=== PATIENT | male | born 1960 | race Caucasian/White ===

== ENCOUNTER → 2021-09-14 | Outpatient (REF) | payer BC ==
[2021-09-14 14:21] LABS: HEMATOCRIT 48.6 % (42.0-52.0); HEMOGLOBIN 15.8 g/dl (13.5-17.5); MEAN CORPUSCULAR HEMOGLOBIN 29.1 pg (27.0-33.0); MEAN CORPUSCULAR HGB CONC 32.5 g/dl (32.0-36.5); MEAN CORPUSCULAR VOLUME 89.5 fl (80.0-96.0); PLATELET COUNT, AUTOMATED 258 10^3/uL (150-450); RED BLOOD COUNT 5.43 10^6/uL (4.30-6.10); WHITE BLOOD COUNT 9.3 10^3/uL (4.0-10.0)
[2021-09-14 15:41] LABS: HEMOGLOBIN A1c 7.2 %
[2021-09-14 16:19] LABS: ALT/SGPT 40 U/L (12-78); BILIRUBIN,TOTAL 0.5 MG/DL (0.2-1.0); BLOOD UREA NITROGEN 14 MG/DL (7-18); CARBON DIOXIDE LEVEL 28 MEQ/L (21-32); CHLORIDE LEVEL 106 MEQ/L (98-107); CHOLESTEROL LEVEL 257 MG/DL (<200); CREATININE FOR GFR 1.14 MG/DL (0.70-1.30); GLOMERULAR FILTRATION RATE > 60.0 (>49); GLUCOSE, FASTING 146 MG/DL (70-100); HDL CHOLESTEROL 55 MG/DL (>40); POTASSIUM SERUM 4.7 MEQ/L (3.5-5.1); SODIUM LEVEL 140 MEQ/L (136-145); TRIGLYCERIDES LEVEL 281 MG/DL (<150)
[2021-09-14 16:20] LABS: ALBUMIN 3.3 GM/DL (3.2-5.2); CHOLESTEROL RISK RATIO 4.672 (<5); FREE T4 1.29 NG/DL (0.76-1.46); LDL CHOLESTEROL 146 MG/DL (<100); NON-HDL-C 202 MG/DL; TOTAL PROTEIN 6.9 GM/DL (6.4-8.2)
== END ==
LOC: M SFHCADAM 11:08
PROVIDERS: ATTEND Family Medicine
DX: I25.10 Atherosclerotic heart disease of native coronary artery without angina pectoris (principal); G47.33 Obstructive sleep apnea (adult) (pediatric); Z12.5 Encounter for screening for malignant neoplasm of prostate; E78.5 Hyperlipidemia, unspecified; E11.9 Type 2 diabetes mellitus without complications

== ENCOUNTER → 2021-10-06 | Outpatient (CLI) | payer BC ==
--- NOTE | 2021-10-08 06:03 | REP ---
INDICATION: PERSONAL HISTORY OF NICOTINE DEPENDENCE COMPARISON: None. TECHNIQUE: Axial noncontrast images from the thoracic inlet to the upper abdomen using low-dose lung screening technique (LDCT). FINDINGS: Subtle patchy ground-glass opacities noted bilaterally which may reflect chronic change versus a new/resolving process. Small subpleural nodules may be obscured due to these areas of opacity. There is no obvious nodule or mass lesion identified. Moderate mediastinal adenopathy is suspected. Atherosclerotic changes to the thoracic aorta and coronary arteries noted along with cardiomegaly. IMPRESSION: Lung-RADS category 0. No prior examinations are available for comparison and patchy bilateral ground-glass opacities along with mediastinal adenopathy may represent chronic change versus acute process. Consider short-term 3 month re-evaluation. <Electronically signed by Dayton Pizarro > 10/08/21 [id number]
== END ==
LOC: M RAD 10:05
PROVIDERS: ATTEND Physician Assistant
DX: Z12.2 Encounter for screening for malignant neoplasm of respiratory organs (principal); Z87.891 Personal history of nicotine dependence

== ENCOUNTER → 2021-10-12 | Outpatient (CLI) | payer BC ==
--- NOTE | 2021-10-16 15:25 | SLEEPCENT ---
DATE: 10/12/2021 ORDERED BY: STARR Lopez Nocturnal polysomnography was performed for the titration of pressure therapy in this patient with a clinical history consistent with the obstructive sleep apnea syndrome supported by home testing revealing a respiratory event index of 31.9. For testing the patient was fit with a ResMed F20 full face mask of medium size, 4 cm of water pressure were applied to the circuit, and the lights were extinguished. Seven hours and 21 minutes of data were reviewed. There were 223.0 minutes of sleep identified. Sleep latency was prolonged at 30 minutes. REM latency was prolonged at 241 minutes. Sleep architecture improved late in the study on optimal pressure therapy, and there were two REM cycles noted. Overall sleep efficiency was 51.6%. The electrocardiogram showed an underlying sinus rhythm with frequent PVCs. Episodes of bigeminy were noted. Average heart rate was 70 beats per minute. Rate ranged 50-90. EEG showed normal waveforms for wake and sleep. Persistent respiratory events prompted an increase in CPAP pressure and despite optimal mask fit and minimal air leak, the patient required a change to a bilevel therapy. Best sleep was seen on a bilevel pressure therapy of 15/8 with which the patient slept through REM without respiratory event or oxygen desaturation. There was some activity noted in the limb EMG leads. Limb movement arousal index on this occasion was 4.8. IMPRESSION: Obstructive sleep apnea syndrome (G47.33). RECOMMENDATION: Nightly use of bilevel pressure therapy inspiratory 15 over expiratory 8. cc: THOMAS HORTON MD
== END ==
LOC: M SLEEP 20:00
PROVIDERS: ATTEND Physician Assistant
DX: G47.33 Obstructive sleep apnea (adult) (pediatric) (principal)

== ENCOUNTER → 2022-01-02 | Outpatient (CLI) | payer BC | LOC: M RAD 12:39 | PROVIDERS: ATTEND Physician Assistant | DX: I70.0 Atherosclerosis of aorta (principal); I25.10 Atherosclerotic heart disease of native coronary artery without angina pectoris ==

== ENCOUNTER → 2022-02-02 | Outpatient (REF) | payer BC ==
[2022-02-02 14:13] LABS: HEMOGLOBIN A1c 7.3 %
[2022-02-02 14:33] LABS: ALBUMIN 3.6 GM/DL (3.2-5.2); BILIRUBIN,TOTAL 0.7 MG/DL (0.2-1.0); CALCIUM LEVEL 8.8 MG/DL (8.8-10.2); CHOLESTEROL RISK RATIO 3.775 (<5); CREATININE FOR GFR 1.35 MG/DL (0.70-1.30); GLOMERULAR FILTRATION RATE 56.8 (>49); POTASSIUM SERUM 4.5 MEQ/L (3.5-5.1)
== END ==
LOC: M SFHCADAM 08:34
PROVIDERS: ATTEND Family Medicine
DX: E78.5 Hyperlipidemia, unspecified (principal); E11.9 Type 2 diabetes mellitus without complications

== ENCOUNTER 2022-04-09 11:26 | Inpatient (IN) | payer BC ==
[~2022-04-09] VITALS: Ht 165.1 cm; Wt 118.8 kg
[2022-04-09] MEDS ORDERED: METO1TAB87 PO (11:55)
[2022-04-09] MEDS ORDERED: BREO1INH3 INH (11:55)
[2022-04-09] MEDS ORDERED: VALS40TA9 PO (11:55)
[2022-04-09] MEDS ORDERED: PRAV20TA2 PO (11:55)
[2022-04-09] MEDS ORDERED: JARD1TAB PO (11:55)
[2022-04-09 13:13] LABS: BASO # 0.1 10^3/uL (0.0-0.2); EOS # 0.2 10^3/uL (0.0-0.5); EOS % 2.5 % (0.0-3.0); HEMATOCRIT 47.2 % (42.0-52.0); LYMPH # 1.6 10^3/uL (1.5-5.0); LYMPH % 18.1 % (24.0-44.0); MEAN CORPUSCULAR HGB CONC 33.9 g/dl (32.0-36.5); MEAN CORPUSCULAR VOLUME 88.6 fl (80.0-96.0); MONO # 0.7 10^3/uL (0.0-0.8); MONO % 8.1 % (2.0-8.0); NEUTROPHILS # 6.3 10^3/uL (1.5-8.5); NEUTROPHILS % 69.6 % (36.0-66.0); PLATELET COUNT, AUTOMATED 225 10^3/uL (150-450); RED BLOOD COUNT 5.33 10^6/uL (4.30-6.10)
[2022-04-09] MEDS ORDERED: ISOVUE-370 76% 100ML VIAL As Ordered ONE (13:19)
[2022-04-09] MEDS ORDERED: ASPIRIN 325 MG TAB PO ONE (13:20)
[2022-04-09 13:39] LABS: AMPHETAMINES LEVEL URINE NEGATIVE (NEGATIVE); BARBITURATES URINE NEGATIVE (NEGATIVE); BENZODIAZEPINES URINE NEGATIVE (NEGATIVE); CANNABINOIDS URINE NEGATIVE (NEGATIVE); COCAINE METABOLITE URINE NEGATIVE (NEGATIVE); METHADONE URINE NEGATIVE (NEGATIVE); OPIATES URINE NEGATIVE (NEGATIVE); PHENCYCLIDINE URINE NEGATIVE (NEGATIVE)
[2022-04-09 13:51] LABS: ACETAMINOPHEN LEVEL < 2.0 UG/ML (10.0-30.0); ALBUMIN 3.1 GM/DL (3.2-5.2); ALT/SGPT 28 U/L (12-78); BILIRUBIN,DIRECT < 0.1 MG/DL (0.0-0.2); BILIRUBIN,TOTAL 0.8 MG/DL (0.2-1.0); CK-MB VALUE MASS < 1.0 NG/ML (<3.6); CPK CREATINE PHOSPHOKINASE 228 U/L (39-308); ETHYL ALCOHOL (ETHANOL) < 0.003 % (0.000-0.010); MB/CK RELATIVE INDEX 0.44 (< OR =4); SALICYLATE LEVEL < 1.7 MG/DL (5.0-30.0); THYROID STIMULATING HORMONE 0.819 uIU/ML (0.358-3.740); TOTAL PROTEIN 7.3 GM/DL (6.4-8.2)
[2022-04-09 14:24] LABS: RSV AMPLIFICATION NEGATIVE (NEGATIVE)
[2022-04-09] MEDS ORDERED: ALBU8.5H INH (14:47)
[2022-04-09] MEDS ORDERED: ASPI81TA26 PO (14:47)
[2022-04-09] MEDS ORDERED: HOME MED LIST COMPLETE! XX SCH (14:50)
[2022-04-09] MEDS ORDERED: hydrALAZINE 20MG/ML 1ML VIAL (J0360 PER 20MG) IV STA (15:17)
[2022-04-09] MEDS ORDERED: hydrALAZINE 20MG/ML 1ML VIAL (J0360 PER 20MG) IV PRN (16:15)
[2022-04-09] MEDS ORDERED: ALBUTEROL 90 MCG/ACT 8GM HFA INHALER INH PRN (16:15)
[2022-04-09] MEDS ORDERED: GLUCAGON INJ 1MG VIAL SC PRN (16:20)
[2022-04-09] MEDS ORDERED: GLUCOSE 4GM CHEW TABLET PO PRN (16:20)
[2022-04-09] MEDS ORDERED: DEXTROSE 50% 50 ML SYRINGE IV PRN (16:20)
[2022-04-09 17:04] LABS: CHOLESTEROL RISK RATIO 4.066 (<5)
[2022-04-09 17:23] LABS: INR 0.88; PROTHROMBIN TIME 12.3 SECONDS (12.7-14.5)
[2022-04-09 17:24] LABS: PARTIAL THROMBOPLASTIN TIME 31.4 SECONDS (25.9-37.0)
[2022-04-09] MEDS: INSULIN LISPRO (NovoLOG) PER UNIT SC SCH ×2 (18:20→21:07)
[2022-04-09 22:15] VITALS: BP 175/88
[2022-04-09] MEDS ORDERED: ACETAMINOPHEN TAB 650MG DOSE (2X325MG) PO ONE (22:35)
[2022-04-09 23:50] VITALS: BP 157/72
[2022-04-10 04:31] VITALS: BP 143/76
[2022-04-10 07:12] LABS: HEMOGLOBIN 15.8 g/dl (13.5-17.5); MEAN CORPUSCULAR HEMOGLOBIN 29.5 pg (27.0-33.0); MEAN CORPUSCULAR HGB CONC 33.6 g/dl (32.0-36.5); MEAN CORPUSCULAR VOLUME 87.7 fl (80.0-96.0); PLATELET COUNT, AUTOMATED 184 10^3/uL (150-450); RED BLOOD COUNT 5.36 10^6/uL (4.30-6.10); WHITE BLOOD COUNT 7.5 10^3/uL (4.0-10.0)
[2022-04-10 07:37] LABS: ALBUMIN 3.1 GM/DL (3.2-5.2); BILIRUBIN,TOTAL 0.6 MG/DL (0.2-1.0); CALCIUM LEVEL 8.9 MG/DL (8.8-10.2); CREATININE FOR GFR 1.3 MG/DL (0.70-1.30); GLOMERULAR FILTRATION RATE 59.4 (>49); POTASSIUM SERUM 4.1 MEQ/L (3.5-5.1)
[2022-04-10] MEDS: ADVAIR HFA 230/21MCG INHALER INH SCH ×2 (08:00→21:47)
[2022-04-10 08:02] VITALS: BP 140/90
[2022-04-10] MEDS: PRAVASTATIN 20 MG TAB PO SCH (08:46)
[2022-04-10] MEDS: ASPIRIN 81MG ENTERIC TABLET PO SCH (08:46)
[2022-04-10] MEDS: INSULIN LISPRO (NovoLOG) PER UNIT SC SCH ×4 (08:46→20:34)
[2022-04-10] MEDS: ENOXAPARIN 40MG/0.4ML SYRINGE (J1650 PER 10MG) SC SCH (08:47)
[2022-04-10] MEDS ORDERED: METOPROLOL TART 25 MG TABLET PO SCH (09:00)
[2022-04-10] MEDS ORDERED: VALSARTAN 80 MG TAB (DIOVAN) PO SCH (09:00)
[2022-04-10] MEDS ORDERED: VALSARTAN 40MG TABLET (DIOVAN) PO SCH (09:00)
[2022-04-10] MEDS ORDERED: CLOPIDOGREL 75 MG TAB PO ONE (10:30)
[2022-04-10 10:41] LABS: MAGNESIUM LEVEL 1.8 MG/DL (1.8-2.4)
[2022-04-10 11:29] LABS: CK-MB VALUE MASS < 1.0 NG/ML (<3.6); CPK CREATINE PHOSPHOKINASE 79 U/L (39-308); MB/CK RELATIVE INDEX 1.27 (< OR =4)
[2022-04-10 12:00] VITALS: BP 160/96
[2022-04-10 13:37] LABS: INR 0.9; PROTHROMBIN TIME 12.5 SECONDS (12.7-14.5)
[2022-04-10 13:38] LABS: PARTIAL THROMBOPLASTIN TIME 32.6 SECONDS (25.9-37.0)
[2022-04-10 15:59] VITALS: BP 159/90
[2022-04-10 20:00] VITALS: BP 156/82
[2022-04-10] MEDS ORDERED: ATORVASTATIN 20 MG TAB PO SCH (21:00)
[2022-04-11 00:05] VITALS: BP 147/70
[2022-04-11 04:00] VITALS: BP 145/85
[2022-04-11] MEDS: ADVAIR HFA 230/21MCG INHALER INH SCH (07:19)
[2022-04-11] MEDS ORDERED: CLOP75TA2 PO (07:36)
[2022-04-11] MEDS ORDERED: ALDA25TA2 PO (07:40)
[2022-04-11] MEDS ORDERED: CARV12.5 PO (07:40)
[2022-04-11] MEDS ORDERED: ENTR1TAB PO (07:40)
[2022-04-11] MEDS ORDERED: PRAV40TA2 PO (07:42)
[2022-04-11 07:56] VITALS: BP 152/82
[2022-04-11] MEDS: INSULIN LISPRO (NovoLOG) PER UNIT SC SCH ×2 (08:04→12:32)
[2022-04-11] MEDS: MAG SULF 1GM/100ML (MAG RUN) 1 GM in IV 1 EA IV ONE ×2 (08:05→08:42)
[2022-04-11] MEDS: ASPIRIN 81MG ENTERIC TABLET PO SCH (08:06)
[2022-04-11] MEDS: PRAVASTATIN 20 MG TAB PO SCH (08:07)
[2022-04-11] MEDS: ENOXAPARIN 40MG/0.4ML SYRINGE (J1650 PER 10MG) SC SCH (08:08)
[2022-04-11 08:30] LABS: BLOOD UREA NITROGEN 18 MG/DL (7-18); CALCIUM LEVEL 9.3 MG/DL (8.8-10.2); CARBON DIOXIDE LEVEL 23 MEQ/L (21-32); CHLORIDE LEVEL 108 MEQ/L (98-107); GLOMERULAR FILTRATION RATE > 60.0 (>49); GLUCOSE, FASTING 153 MG/DL (70-100); MAGNESIUM LEVEL 1.8 MG/DL (1.8-2.4); SODIUM LEVEL 138 MEQ/L (136-145)
[2022-04-11] MEDS ORDERED: ASPI-551 PO (08:39)
[2022-04-11] MEDS ORDERED: ENTRESTO 24-26MG TABLET (SACUBITRIL/VALSARTAN) PO SCH (09:00)
[2022-04-11] MEDS ORDERED: CLOPIDOGREL 75 MG TAB PO SCH (09:00)
[2022-04-11] MEDS ORDERED: MAGNESIUM OXIDE 400MG TAB (MAG-OX) PO ONE (09:00)
[2022-04-11] MEDS ORDERED: SPIRONOLACTONE 25 MG TAB PO SCH (09:00)
[2022-04-11] MEDS ORDERED: CARVedilol 12.5 MG TAB PO SCH (09:00)
[2022-04-11] MEDS ORDERED: VALSARTAN 40MG TABLET (DIOVAN) PO SCH (09:00)
[2022-04-11] MEDS ORDERED: NON-FORMULARY 1 EA EA INH SCH (09:00)
[2022-04-11 09:47] LABS: DRVV SCREEN 42.3 SEC
[2022-04-11 09:49] LABS: PTT LUPUS TYPE ANTICOAG SCREEN 1.1 (0-1.2)
[2022-04-11 11:32] VITALS: BP 150/80
[2022-04-11] MEDS ORDERED: CARVedilol 12.5 MG TAB PO ONE (12:00)
[2022-04-11 12:32] VITALS: BP 150/80
[2022-04-11 14:32] VITALS: BP 138/68
[2022-04-16 14:11] LABS: ANCA-ATYPICAL <1:20 titer (Neg:<1:20); ANTI THROMBIN 3 ANTIGEN IMMUNO 101 % (72-124); ANTI THROMBIN 3 FUNCT ACTIVITY 88 % (75-135); ANTINUCLEAR ANTIBODIES DIRECT Negative (Negative); CARDIOLIPIN IGA ANTIBODY <9 APL U/mL (0-11); CARDIOLIPIN IGG ANTIBODY <9 GPL U/mL (0-14); CARDIOLIPIN IGM ANTIBODY <9 MPL U/mL (0-12); CYTOPLASMIC NEUTROP AB ANCA-C <1:20 titer (Neg:<1:20); PERINUCLEAR AB ANCA-P <1:20 titer (Neg:<1:20); PROTEIN C ANTIGEN 123 % (60-150); PROTEIN S ANTIGEN FREE 137 % (61-136); PROTEIN S ANTIGEN TOTAL 135 % (60-150); SJOGREN'S ANTI SS-A <0.2 AI (0.0-0.9); SJOGREN'S ANTI SS-B <0.2 AI (0.0-0.9)
== END 2022-04-11 15:19 | disposition home or self-care (01) | DRG 45 ==
LOC: M ED 11:26 → M ED INP 14:49 → M PCU 22:18
PROVIDERS: ADMIT Internal Medicine; ATTEND General Practice
DX: I63.9 Cerebral infarction, unspecified (principal); I11.0 Hypertensive heart disease with heart failure; I50.22 Chronic systolic (congestive) heart failure; Z68.41 Body mass index [BMI] 40.0-44.9, adult; I69.320 Aphasia following cerebral infarction; E11.9 Type 2 diabetes mellitus without complications; E78.5 Hyperlipidemia, unspecified; I16.1 Hypertensive emergency; I25.10 Atherosclerotic heart disease of native coronary artery without angina pectoris; J44.9 Chronic obstructive pulmonary disease, unspecified; E66.9 Obesity, unspecified; Z79.82 Long term (current) use of aspirin; Z79.899 Other long term (current) drug therapy; Z95.2 Presence of prosthetic heart valve; Z95.1 Presence of aortocoronary bypass graft; Z96.642 Presence of left artificial hip joint; Z87.891 Personal history of nicotine dependence

== ENCOUNTER → 2022-05-06 | Outpatient (CLI) | payer BC ==
[~2022-05-06] MED LIST: ALBU8.5H INH; ALDA25TA2 PO; ASPI-551 PO; ASPI81TA26 PO; BREO1INH3 INH; CARV12.5 PO; CLOP75TA2 PO; ENTR1TAB PO; JARD1TAB PO; METO1TAB87 PO; PRAV20TA2 PO; PRAV40TA2 PO; VALS40TA9 PO
== END ==
LOC: M LABSMTC 11:55
PROVIDERS: ATTEND Anesthesiology
DX: Z01.812 Encounter for preprocedural laboratory examination (principal); Z20.822 Contact with and (suspected) exposure to COVID-19

== ENCOUNTER 2022-05-09 11:34 | Day surgery (SDC) | payer BC ==
[~2022-05-09] VITALS: Ht 165.1 cm; Wt 115.7 kg
[~2022-05-09 11:34] MED LIST changes: +ceFAZolin SOD 2 GM in IV 1 EA IV ONE
[2022-05-09] MEDS ORDERED: LR 1,000 ML IV SCH (12:10)
[2022-05-09] MEDS ORDERED: MUPIROCIN 2% OINT 22 GM TUBE As Ordered ONE (13:24)
[2022-05-09] MEDS ORDERED: LIDOCAINE 1% MDV 20ML VIAL As Ordered ONE (13:24)
[2022-05-09] MEDS ORDERED: fentaNYL 100 MCG/2 ML INJECTION As Ordered ONE (14:14)
[2022-05-09] MEDS ORDERED: MIDAZOLAM INJ 2MG/2ML VIAL (J2250 PER 1MG) As Ordered ONE (14:14)
[2022-05-09] MEDS ORDERED: propofoL 200 MG/20 ML VIAL As Ordered ONE (14:15)
[2022-05-09 14:25] VITALS: BP 166/93
== END 2022-05-09 15:05 | disposition home or self-care (01) ==
LOC: M SDC 11:34
PROVIDERS: ATTEND Internal Medicine Cardiovascular Disease
DX: I63.9 Cerebral infarction, unspecified (principal); I10 Essential (primary) hypertension; I25.10 Atherosclerotic heart disease of native coronary artery without angina pectoris; Z98.61 Coronary angioplasty status; Z87.891 Personal history of nicotine dependence; G47.33 Obstructive sleep apnea (adult) (pediatric); J44.9 Chronic obstructive pulmonary disease, unspecified; Z86.73 Personal history of transient ischemic attack (TIA), and cerebral infarction without residual deficits; E11.9 Type 2 diabetes mellitus without complications; F32.A Depression, unspecified; Z79.02 Long term (current) use of antithrombotics/antiplatelets; Z79.51 Long term (current) use of inhaled steroids; R60.0 Localized edema
CPT/HCPCS: 33285; C1764; J0690; J2250; J3010

== ENCOUNTER → 2022-05-31 | Outpatient (CLI) | payer BC ==
[~2022-05-31] MED LIST changes: -ceFAZolin SOD 2 GM in IV 1 EA IV ONE
== END ==
LOC: M SOG 08:26
PROVIDERS: ATTEND Orthopaedic Surgery
DX: M19.012 Primary osteoarthritis, left shoulder (principal); M16.11 Unilateral primary osteoarthritis, right hip; M25.512 Pain in left shoulder; M25.552 Pain in left hip; Z96.642 Presence of left artificial hip joint

== ENCOUNTER → 2022-06-06 | Outpatient (REF) | payer BC ==
[2022-06-06 13:35] LABS: BLOOD UREA NITROGEN 25 MG/DL (7-18); CALCIUM LEVEL 9.2 MG/DL (8.8-10.2); CARBON DIOXIDE LEVEL 24 MEQ/L (21-32); CHLORIDE LEVEL 104 MEQ/L (98-107); CREATININE FOR GFR 1.26 MG/DL (0.70-1.30); GLOMERULAR FILTRATION RATE > 60.0 (>49); GLUCOSE, FASTING 249 MG/DL (70-100); POTASSIUM SERUM 4.4 MEQ/L (3.5-5.1); SODIUM LEVEL 137 MEQ/L (136-145)
[2022-06-06 21:37] LABS: HEMOGLOBIN A1c 8.6 %
== END ==
LOC: M SFHCADAM 10:22
PROVIDERS: ATTEND Family Medicine
DX: E11.9 Type 2 diabetes mellitus without complications (principal)

== ENCOUNTER → 2022-09-25 | Outpatient (REF) | payer BC ==
[2022-09-25 17:00] LABS: HEMATOCRIT 44.9 % (42.0-52.0); HEMOGLOBIN 14.8 g/dl (13.5-17.5); MEAN CORPUSCULAR HEMOGLOBIN 30.5 pg (27.0-33.0); MEAN CORPUSCULAR VOLUME 92.6 fl (80.0-96.0); PLATELET COUNT, AUTOMATED 246 10^3/uL (150-450); RED BLOOD COUNT 4.85 10^6/uL (4.30-6.10); WHITE BLOOD COUNT 8.9 10^3/uL (4.0-10.0)
[2022-09-25 18:53] LABS: HEMOGLOBIN A1c 8.6 % (4.0-6.0)
[2022-09-25 19:02] LABS: ALBUMIN 3.8 G/DL (3.2-5.2); ALT/SGPT 29 U/L (7.0-40); BILIRUBIN,TOTAL 0.4 MG/DL (0.3-1.2); BLOOD UREA NITROGEN 18 MG/DL (9-23); CALCIUM LEVEL 9.2 MG/DL (8.3-10.6); CARBON DIOXIDE LEVEL 24 MMOL/L (20-31); CHLORIDE LEVEL 105 MMOL/L (98-107); CHOLESTEROL LEVEL 175 MG/DL (<200); CHOLESTEROL RISK RATIO 3.07 (<5); CREATININE FOR GFR 1.27 MG/DL (0.70-1.30); GLOMERULAR FILTRATION RATE > 60.0 (>49); GLUCOSE, FASTING 211 MG/DL (74-106); LDL CHOLESTEROL 42.2 MG/DL (<100); NON-HDL-C 118 MG/DL; POTASSIUM SERUM 4.8 MMOL/L (3.5-5.1); SODIUM LEVEL 141 MMOL/L (136-145); TOTAL PROTEIN 6.7 G/DL (5.7-8.2); TRIGLYCERIDES LEVEL 379 MG/DL (<150)
== END ==
LOC: M WUC 13:15
PROVIDERS: ATTEND Family Medicine
DX: Z86.73 Personal history of transient ischemic attack (TIA), and cerebral infarction without residual deficits (principal); E11.9 Type 2 diabetes mellitus without complications; I25.10 Atherosclerotic heart disease of native coronary artery without angina pectoris; I50.22 Chronic systolic (congestive) heart failure

== ENCOUNTER → 2023-01-01 | Outpatient (REF) | payer BC ==
[2023-01-01 13:40] LABS: CALCIUM LEVEL 9.6 MG/DL (8.3-10.6); CREATININE FOR GFR 1.36 MG/DL (0.70-1.30); GLOMERULAR FILTRATION RATE 56.2 (>49)
[2023-01-01 14:09] LABS: HEMOGLOBIN A1c 7.9 % (4.0-6.0)
== END ==
LOC: M SFHCADAM 11:13
PROVIDERS: ATTEND Family Medicine
DX: E11.9 Type 2 diabetes mellitus without complications (principal)

== ENCOUNTER → 2023-01-29 | Outpatient (CLI) | payer BC | LOC: M RAD 06:09 | PROVIDERS: ATTEND Physician Assistant | DX: Z12.2 Encounter for screening for malignant neoplasm of respiratory organs (principal); Z87.891 Personal history of nicotine dependence; I51.7 Cardiomegaly ==

== ENCOUNTER → 2023-03-27 | Outpatient (REF) | payer BC ==
[2023-03-27 18:17] LABS: HEMOGLOBIN A1c 7.2 % (4.0-6.0)
[2023-03-27 18:18] LABS: CALCIUM LEVEL 8.7 MG/DL (8.3-10.6); CREATININE FOR GFR 1.39 MG/DL (0.70-1.30); GLOMERULAR FILTRATION RATE 54.8 (>49); POTASSIUM SERUM 4.7 MMOL/L (3.5-5.1)
== END ==
LOC: M SFHCADAM 16:40
PROVIDERS: ATTEND Family Medicine
DX: E11.9 Type 2 diabetes mellitus without complications (principal)

== ENCOUNTER → 2023-08-07 | Outpatient (REF) | payer MEDICARE, BC | LOC: M SFHCADAM 11:58 | PROVIDERS: ATTEND Physician Assistant | DX: R05.1 Acute cough (principal); Z79.899 Other long term (current) drug therapy ==

== ENCOUNTER → 2023-08-20 | Outpatient (REF) | payer MEDICARE ==
[2023-08-20 14:16] LABS: BASO # 0.1 10^3/uL (0.0-0.2); BASO % 1.4 % (0.0-1.0); EOS # 0.7 10^3/uL (0.0-0.5); EOS % 7.5 % (0.0-3.0); HEMATOCRIT 48.1 % (42.0-52.0); HEMOGLOBIN 15.4 g/dl (13.5-17.5); LYMPH # 1.5 10^3/uL (1.5-5.0); LYMPH % 16.5 % (24.0-44.0); MEAN CORPUSCULAR HEMOGLOBIN 29.2 pg (27.0-33.0); MEAN CORPUSCULAR VOLUME 91.1 fl (80.0-96.0); MONO # 1.1 10^3/uL (0.0-0.8); MONO % 11.4 % (2.0-8.0); NEUTROPHILS # 5.8 10^3/uL (1.5-8.5); NEUTROPHILS % 62.6 % (36.0-66.0); PLATELET COUNT, AUTOMATED 267 10^3/uL (150-450); RED BLOOD COUNT 5.28 10^6/uL (4.30-6.10); WHITE BLOOD COUNT 9.3 10^3/uL (4.0-10.0)
[2023-08-20 14:23] LABS: FREE T4 1.32 NG/DL (0.89-1.76)
[2023-08-20 14:24] LABS: ALBUMIN 3.3 G/DL (3.2-5.2); BILIRUBIN,TOTAL 0.5 MG/DL (0.3-1.2); CALCIUM LEVEL 9.1 MG/DL (8.3-10.6); CHOLESTEROL RISK RATIO 3.34 (<5); CREATININE FOR GFR 1.36 MG/DL (0.70-1.30); GLOMERULAR FILTRATION RATE 56.2 (>49); HDL CHOLESTEROL 51.4 MG/DL (>40); LDL CHOLESTEROL 80.4 MG/DL (<100); NON-HDL-C 120.6 MG/DL; POTASSIUM SERUM 4.5 MMOL/L (3.5-5.1); THYROID STIMULATING HORMONE 1.107 uIU/ML (0.55-4.78)
[2023-08-20 14:26] LABS: HEMOGLOBIN A1c 7.3 % (4.0-6.0)
== END ==
LOC: M SFHCADAM 09:29
PROVIDERS: ATTEND Physician Assistant
DX: I25.10 Atherosclerotic heart disease of native coronary artery without angina pectoris (principal); I50.22 Chronic systolic (congestive) heart failure; E78.5 Hyperlipidemia, unspecified; E11.9 Type 2 diabetes mellitus without complications

== ENCOUNTER → 2023-11-05 | Outpatient (CLI) | payer MEDICARE | LOC: M ADAMS 13:54 | PROVIDERS: ATTEND Physician Assistant Medical | DX: J44.1 Chronic obstructive pulmonary disease with (acute) exacerbation (principal) ==

== ENCOUNTER → 2024-01-31 | Outpatient (REF) | payer MEDICARE | LOC: M SFHCADAM 16:47 | PROVIDERS: ATTEND Physician Assistant | DX: J44.1 Chronic obstructive pulmonary disease with (acute) exacerbation (principal) ==

== ENCOUNTER → 2024-03-03 | Outpatient (CLI) | payer MEDICARE | LOC: M RAD 09:12 | PROVIDERS: ATTEND Physician Assistant | DX: Z12.2 Encounter for screening for malignant neoplasm of respiratory organs (principal); Z87.891 Personal history of nicotine dependence; I25.10 Atherosclerotic heart disease of native coronary artery without angina pectoris; Z95.0 Presence of cardiac pacemaker; R91.1 Solitary pulmonary nodule ==

== ENCOUNTER → 2024-04-09 | Outpatient (REF) | payer MEDICARE ==
[~2024-04-09] MED LIST changes: +AZO-95TA3 PO; +DOXE6TAB PO; +FLUT1BLS8 PO; +JANU100T PO; +JARD1TAB3 PO; +NAPR-885 PO; +OXYB5TAB14 PO; +ROSU20TA61 PO; +SPIR-10 PO
[2024-04-09 13:35] LABS: HEMATOCRIT 40.6 % (42.0-52.0); HEMOGLOBIN 12.9 g/dl (13.5-17.5); MEAN CORPUSCULAR HEMOGLOBIN 28.5 pg (27.0-33.0); MEAN CORPUSCULAR HGB CONC 31.8 g/dl (32.0-36.5); MEAN CORPUSCULAR VOLUME 89.8 fl (80.0-96.0); PLATELET COUNT, AUTOMATED 368 10^3/uL (150-450); RED BLOOD COUNT 4.52 10^6/uL (4.30-6.10); WHITE BLOOD COUNT 11.6 10^3/uL (4.0-10.0)
[2024-04-09 13:40] LABS: HEMOGLOBIN A1c 7.6 % (4.0-6.0)
[2024-04-09 14:02] LABS: CREATININE, URINE 66.1 MG/DL; MAU/CREAT RATIO 464.4 MCG/MG (0.0-30.0)
[2024-04-09 14:04] LABS: ALBUMIN 3.1 G/DL (3.2-5.2); ALKALINE PHOSPHATASE 76 U/L (46-116); ALT/SGPT 14 U/L (7.0-40); AST/SGOT < 8 U/L (<34); BILIRUBIN,TOTAL 0.4 MG/DL (0.3-1.2); BLOOD UREA NITROGEN 18 MG/DL (9-23); CALCIUM LEVEL 8.8 MG/DL (8.3-10.6); CARBON DIOXIDE LEVEL 26 MMOL/L (20-31); CHLORIDE LEVEL 107 MMOL/L (98-107); CHOLESTEROL LEVEL 113 MG/DL (<200); CHOLESTEROL RISK RATIO 2.58 (<5); CREATININE FOR GFR 1.27 MG/DL (0.70-1.30); GLOMERULAR FILTRATION RATE > 60.0 (>49); GLUCOSE, FASTING 142 MG/DL (74-106); HDL CHOLESTEROL 43.7 MG/DL (>40); LDL CHOLESTEROL 38.7 MG/DL (<100); NON-HDL-C 69.3 MG/DL; POTASSIUM SERUM 4.9 MMOL/L (3.5-5.1); SODIUM LEVEL 140 MMOL/L (136-145); TOTAL PROTEIN 6.7 G/DL (5.7-8.2); TRIGLYCERIDES LEVEL 153 MG/DL (<150)
[2024-04-09 14:05] LABS: FREE T4 1.18 NG/DL (0.89-1.76); THYROID STIMULATING HORMONE 0.768 uIU/ML (0.55-4.78)
== END ==
LOC: M SFHCADAM 10:18
PROVIDERS: ATTEND Family Medicine
DX: F51.01 Primary insomnia (principal); E11.9 Type 2 diabetes mellitus without complications; I25.10 Atherosclerotic heart disease of native coronary artery without angina pectoris; E78.5 Hyperlipidemia, unspecified; I50.22 Chronic systolic (congestive) heart failure; K74.60 Unspecified cirrhosis of liver

== ENCOUNTER → 2024-04-14 | Outpatient (CLI) | payer MEDICARE | LOC: M RAD 14:17 | PROVIDERS: ATTEND Physician Assistant | DX: R31.9 Hematuria, unspecified (principal); N26.1 Atrophy of kidney (terminal); N28.89 Other specified disorders of kidney and ureter ==

== ENCOUNTER → 2024-04-17 | Outpatient (CLI) | payer MEDICARE | LOC: M WUC 10:18 | PROVIDERS: ATTEND Urology | DX: R31.0 Gross hematuria (principal); I51.7 Cardiomegaly ==

== ENCOUNTER 2024-04-27 11:44 | Day surgery (SDC) | payer MEDICARE ==
[~2024-04-27] VITALS: Ht 165.1 cm; Wt 110.4 kg
[2024-04-27] MEDS ORDERED: fentaNYL 100 MCG/2 ML INJECTION As Ordered ONE (12:03)
[2024-04-27] MEDS ORDERED: ONDANSETRON 4MG 2ML VIAL As Ordered ONE (12:03)
[2024-04-27] MEDS ORDERED: ALBUTEROL SULFATE 2.5MG/0.5ML INH NEB SOLN INH PRN (12:05)
[2024-04-27] MEDS ORDERED: LR 1,000 ML IV SCH ×2 (12:05→13:35)
[2024-04-27] MEDS ORDERED: CLOP75TA2 PO (12:10)
[2024-04-27] MEDS ORDERED: ETOMIDATE INJ 20MG/10ML VIAL As Ordered ONE (12:34)
[2024-04-27] MEDS ORDERED: PHENYLEPHRINE 10MG/ML 1ML VIAL As Ordered ONE (12:35)
[2024-04-27] MEDS: ceFAZolin SOD 2 GM in IV 1 EA IV ONE (12:44)
[2024-04-27] MEDS ORDERED: ROCURONIUM BROMIDE 50MG/5ML VIAL As Ordered ONE (12:49)
[2024-04-27] MEDS: ISOVUE-300 61% 100ML VIAL As Ordered ONE (13:20)
[2024-04-27] MEDS ORDERED: SUGAMMADEX SODIUM 500 MG/5 ML VIAL (BRIDION) As Ordered ONE (13:26)
[2024-04-27] MEDS ORDERED: MACR100C43 PO (13:33)
[2024-04-27] MEDS ORDERED: PYRI1TAB5 PO (13:33)
[2024-04-27] MEDS ORDERED: DEXTROSE 50% 50ML SYRINGE IV PRN (13:35)
[2024-04-27] MEDS ORDERED: ONDANSETRON 4MG 2ML VIAL IV PRN (13:35)
[2024-04-27] MEDS ORDERED: GLUCAGON INJ 1MG VIAL SC PRN (13:35)
[2024-04-27] MEDS ORDERED: INSULIN LISPRO (NovoLOG) PER UNIT SC PRN (13:35)
[2024-04-27] MEDS ORDERED: fentaNYL 100 MCG/2 ML INJECTION IV PRN (13:35)
[2024-04-27] MEDS ORDERED: HYDROMORPHONE HCL 0.5 MG/ 0.5 ML SYRINGE IV PRN (13:35)
[2024-04-27] MEDS ORDERED: GLUCOSE 4 GM CHEW PO PRN (13:35)
[2024-04-27] MEDS ORDERED: oxyCODONE 5MG TAB PO PRN (13:35)
[2024-04-27 15:20] VITALS: BP 133/79; TEMP 97.4; O2SAT 96
== END 2024-04-27 15:33 | disposition home or self-care (01) ==
LOC: M SDC 11:44
PROVIDERS: ATTEND Urology
DX: R31.0 Gross hematuria (principal); I48.91 Unspecified atrial fibrillation; I25.10 Atherosclerotic heart disease of native coronary artery without angina pectoris; I10 Essential (primary) hypertension; E11.9 Type 2 diabetes mellitus without complications; E78.00 Pure hypercholesterolemia, unspecified; Z79.899 Other long term (current) drug therapy; I25.2 Old myocardial infarction; Z95.0 Presence of cardiac pacemaker; Z95.1 Presence of aortocoronary bypass graft; Z95.5 Presence of coronary angioplasty implant and graft
CPT/HCPCS: 52332; 52351; 74420; C1769; C1894; C2617; J0690; J1100; J2371; J2405; J3010; Q9967

== ENCOUNTER → 2024-05-14 | Outpatient (CLI) | payer MEDICARE ==
[~2024-05-14] MED LIST changes: +MACR100C43 PO; +PYRI1TAB5 PO
== END ==
LOC: M RAD 08:52
PROVIDERS: ATTEND Family Medicine
DX: K74.60 Unspecified cirrhosis of liver (principal); K76.0 Fatty (change of) liver, not elsewhere classified; N26.1 Atrophy of kidney (terminal)